=== PATIENT | male | born 1940 | race Caucasian/White ===

== ENCOUNTER 2016-11-30 08:40 | Emergency (ER) | payer MEDICARE ==
[2016-11-30 08:53] VITALS: BP 147/91; O2SAT 95
--- NOTE | 2016-11-30 09:11 | ERPHSYRPT ---
- History of Present Illness Time Seen by Provider: 11/30/16 08:52 Source: patient Exam Limitations: no limitations Patient Subjective Stated Complaint: PT COMES IN STATES "MY HEAD JUST FEELS CLOGGED LIKE MY SINUS'S" STATES THAT HE HAS SEEN HIS FAMILY MD X 5 TIMES FOR SAME THING STATES THAT THIS PROBLEMS HAS BEEN GOING ON X 2 MONTHS. FAMILY STATES HE HAS BEEN ON NOSE SPRAY ,. STEROIDS,ANTIBIOTICS BUT NOTHING IS HELPING PT DENIES A COUGH,NASUEA VOMITING. Triage Nursing Assessment: PT ALERT WARM AND DRY RESP EASY NON LABORED PT AMBULATED TO ROOM WITHOUT DIFFICULTY. PT HARD OF HEARING. Physician History: Pt. with chronic headache for past 2 months, usually frontal headache, dull, intermittent, sinus pressure, tinnitus and generalized weakness. Pt. have been seen by primary provider X 5 with minimal relief. Denies any blurred vision, dizziness, AMS, speech difficulty or ataxia. Denies any recent illnesses, fever , chills, cough, chest pain, palpitations or shortness of breath. Lives with [id number]. Pt. with decrease hearing and doesn't want to see "hearing doctor" due to not having funds. Timing/Duration: intermittent, other (2 months) Quality: dullness Head Pain Location: frontal Severity of Pain-Max: moderate Severity of Pain-Current: moderate Recent Head Trauma: no recent headache/trauma Modifying Factors: Improves With: other (Atbcs/decongestants with minimal relief ) Associated Symptoms: facial pain, nasal congestion, No confusion, No dizziness, No fever/chills, No nausea/vomiting, No nasal drainage, No vision changes, No visual disturbance Allergies/Adverse Reactions: Penicillins Allergy (Intermediate, Verified 10/24/14 08:38) Rash Sulfa (Sulfonamide Antibiotics) Allergy (Intermediate, Verified 10/24/14 08:38) Rash Home Medications: Albuterol Sulfate [Proair Hfa] 0 gm IH BID 10/23/14 [History] Alprazolam 2 mg PO TIDPRN PRN 10/23/14 [History] Hydrocodone Bit/Acetaminophen [Hydrocodon-Acetaminophn 10-325] 1 each PO Q6HPRN PRN 10/23/14 [History] Hx Tetanus, Diphtheria Vaccination/Date Given: Yes Hx Influenza Vaccination/Date Given: Yes Hx Pneumococcal Vaccination/Date Given: No Immunizations Up to Date: Yes - Review of Systems Constitutional: Weakness (generalize, non focal), No Fever, No Chills Eyes: No Symptoms Ears, Nose, & Throat: Hearing Changes, Tinnitus, Nose Congestion, No Throat Pain , No Throat Swelling Respiratory: Cough (dry), No Dyspnea Cardiac: No Symptoms, No Chest Pain, No Edema, No Syncope Abdominal/Gastrointestinal: No Abdominal Pain, No Nausea, No Vomiting, No Diarrhea Genitourinary Symptoms: No Dysuria Musculoskeletal: No Symptoms, No Back Pain, No Neck Pain Skin: No Rash Neurological: No Dizziness, No Focal Weakness, No Sensory Changes Psychological: No Symptoms Endocrine: No Symptoms All Other Systems: Reviewed and Negative - Past Medical History Pertinent Past Medical History: Yes Neurological History: No Pertinent History ENT History: Cataracts Cardiac History: Hypertension Respiratory History: COPD Endocrine Medical History: No Pertinent History Musculoskeletal History: Osteoarthritis GI Medical History: GERD History: No Pertinent History Psycho-Social History: Anxiety, Depression Male Reproductive Disorders: No Pertinent History - Past Surgical History Past Surgical History: Yes Neuro Surgical History: No Pertinent History Cardiac: No Pertinent History Respiratory: No Pertinent History Gastrointestinal: Hernia Repair Genitourinary: No Pertinent History Musculoskeletal: No Pertinent History Male Surgical History: No Pertinent History Other Surgical History: cataract surgery - Social History Smoking Status: Current every day smoker How long have you smoked: 60 YEARS Exposure to second hand smoke: Yes Drug Use: none Patient Lives Alone: No - Nursing Vital Signs Nursing Vital Signs: Initial Vital Signs Temperature 97.8 F Temperature Source Oral Pulse Rate 84 Respiratory Rate 18 Blood Pressure [Right Arm] 147/91 - Physical Exam General Appearance: no apparent distress Eye Exam: PERRL/EOMI, eyes nml inspection Ears, Nose, Throat Exam: normal ENT inspection, moist mucous membranes, other ( mild tenderness frontal sinus to palpation) Neck Exam: normal inspection, supple, full range of motion, No meningismus Respiratory Exam: normal breath sounds, lungs clear Cardiovascular Exam: regular rate/rhythm, normal heart sounds Gastrointestinal/Abdominal Exam: soft, No tenderness, No distention Back Exam: normal inspection, normal range of motion Extremity Exam: normal inspection, normal range of motion Mental Status Exam: alert, 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, 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 Exam: normal hearing, PERRL, No abnormal speech, No facial droop Coordination/Gait Exam: normal finger to nose, normal cerebellar function Motor/Sensory Exam: no motor deficit, no sensory deficit DTR Exam: knee (R): 2+, knee (L): 2+ Skin Exam: normal color, warm, dry, No rash Lymphatic Exam: No adenopathy SpO2 Interpretation: normal SpO2: 95 Oxygen Delivery: Room Air - Course Nursing assessment & vital signs reviewed: Yes - CT Exams Head CT Interpretation: Negative, Tele-radiologist Report Ordered Tests: Active Orders 24 hr Category Date Time Status HEAD WITHOUT CONTRAST [CT] Stat Exams 11/30/16 09:22 Taken Medication Summary Discontinued Medications Generic Name Dose Route Start Last Admin Trade Name Inderjit PRN Reason Stop Dose Admin Acetaminophen 1,000 mg 11/30/16 09:22 11/30/16 09:25 Tylenol Extra Strength 500 Mg PO 11/30/16 09:23 1,000 mg STAT STA Administration Acetaminophen Confirm 11/30/16 09:25 Tylenol Extra Strength 500 Mg Administered 11/30/16 09:26 Dose 1,000 mg .ROUTE .STMesitis-MED ONE - Progress Progress: improved Air Movement: good Progress Note: 11/30/16 09:52 Pt. given Tylenol with some improvement of symptoms. Blood Culture(s) Obtained: No Antibiotics given: No Counseled pt/family regarding: diagnosis, rad results - Departure Time of Disposition: 10:09 Departure Disposition: Home Clinical Impression: Headache Condition: Stable Critical Care Time: No Referrals: PEGGY MACIAS [Primary Care Provider] - Instructions: Headache Additional Instructions: Return for worse headaches, numbness, blurred vision, difficulty speaking, altered mental status or any problems.
[2016-11-30] MEDS ORDERED: TYLENOL EXTRA STRENGTH 500 MG PO STA (09:22)
[2016-11-30] MEDS ORDERED: TYLENOL EXTRA STRENGTH 500 MG ONE (09:25)
[2016-11-30 10:15] VITALS: PULSE 80
--- NOTE | 2016-11-30 20:52 | XRAY ---
Indication: Headache. Multiple contiguous axial images obtained through the head without contrast. Comparison: None There is age-appropriate global atrophy and mild periventricular degenerative microvascular ischemia bilaterally. No acute intracranial hemorrhage, abnormal extra-axial fluid collection, or mass effect. Fourth ventricle is midline without hydrocephalus. Bony calvarium intact. Visualized paranasal sinuses clear. Minimal opacification of the inferior right mastoid air cells. Impression: Nonacute senile brain. Minimal right mastoid air cell opacification presumed inflammatory. CTDI 70.38
== END 2016-11-30 10:15 | disposition home or self-care (01) ==
LOC: ED 08:40
DX: R51 Headache (principal)
CPT/HCPCS: 99283; 70450; A9270

== ENCOUNTER 2018-11-18 10:37 | Emergency (ER) | payer MEDICARE ==
[2018-11-18] MEDS ORDERED: ROCEPHIN 1 Gm-D5w 50 ml Bag** 1 G/50 ML IVPB IV STA (10:55)
[2018-11-18] MEDS ORDERED: DUONEB 0.5-3 MG/3 ml Neb IH ONE ×2 (10:55→11:04)
[2018-11-18] MEDS ORDERED: Zithromax 500 MG/ 250 ML NaCl Premix 500 MG/250 ML IVPB IV STA (10:55)
[2018-11-18] MEDS ORDERED: solu-MEDROL 125 MG IV ONE (10:55)
--- NOTE | 2018-11-18 11:18 | XRAY ---
Indication: Short of breath. Comparison: June 18, 2018. PA/lateral chest again demonstrates COPD and bilateral scattered fibrosis/scarring. New left suprahilar masslike opacity warrants additional imaging. Heart and mediastinal structures within normal limits. Bony thorax intact again with degenerative changes and minimal scoliosis. Impression: 1. New left suprahilar masslike opacity. Recommend CT chest with contrast. 2. Stable COPD and scattered fibrosis/scarring.
[2018-11-18] MEDS ORDERED: solu-MEDROL 125 MG ONE (11:30)
[2018-11-18] MEDS ORDERED: ROCEPHIN 1 Gm-D5w 50 ml Bag** 1 G/50 ML IVPB IV ONE (11:30)
[2018-11-18] MEDS ORDERED: Zithromax 500 MG/ 250 ML NaCl Premix 500 MG/250 ML IVPB IV ONE (11:30)
[2018-11-18 11:31] LABS: Hematocrit 42.3 % (42-50); Hemoglobin 13.5 gm/dl (12.5-18.0); Mean Cell Volume 87.2 fl (78-100); Mean Corpuscular Hemoglobin 27.8 pg (26-32); Mean Corpuscular Hgb Concent. 31.9 g/dl (32-36); Mean Platelet Volume 11.4 fl (6-9.5); Platelet Count 233 K/mm3 (150-450); Red Blood Count 4.85 M/mm3 (4.1-5.6); Red Cell Distribution Width 14.6 % (11.5-14.0); White Blood Count 9.7 K/mm3 (4.0-10.5)
[2018-11-18 11:45] LABS: ALBUMIN 4.1 g/dL (3.5-5.0); ALKALINE PHOSPHATASE 127 U/L (38-126); ANION GAP 13.6 MEQ/L (5-15); BLOOD UREA NITROGEN 16 mg/dL (9-20); CHLORIDE 100 mmol/L (98-107); Calcium 9.3 mg/dL (8.4-10.2); Carbon Dioxide 31 mmol/L (22-30); Creatinine 1 1.06 mg/dL (0.66-1.25); Glucose 90 mg/dL (74-106); Potassium 3.4 mmol/L (3.5-5.1); SGOT/AST 25 U/L (17-59); SGPT/ALT 13 U/L (0-50); SODIUM 140 mmol/L (137-145); Total Protein 8.6 g/dL (6.3-8.2)
[2018-11-18 11:46] LABS: Lymphocytes 35 % (24-44); Monocyte 2 % (0.0-12.0); Neutrophils 63 % (36.-66.); Platelet Estimate NORMAL (NORMAL); Total Cells Counted 100
[2018-11-18 12:07] LABS: INFLUENZA A POSITIVE (NEGATIVE); INFLUENZA B NEGATIVE (NEGATIVE); RESPIRATORY SYNCTIAL VIRUS NEGATIVE (Negative)
[2018-11-18] MEDS ORDERED: Tamiflu 75MG Capsule PO ONE ×2 (12:08→12:59)
[2018-11-18 12:37] LABS: Appearance CLEAR (CLEAR); Bilirubin NEGATIVE (NEGATIVE); Blood NEGATIVE Ery/ul (0-5); Glucose NEGATIVE (NEGATIVE); Ketones NEGATIVE (NEGATIVE); Leukocyte Esterase NEGATIVE (NEGATIVE); Mucus SLIGHT /HPF (NEGATIVE); Nitrite NEGATIVE (NEGATIVE); Protein,Urine Dip NEGATIVE (Negative); Specific Gravity 1.009 (1.005-1.025); Urobilinogen NEGATIVE mg/dL (0-1)
[2018-11-18 12:42] LABS: Fatty Casts,Urine N /LPF (NEGATIVE)
--- NOTE | 2018-11-18 13:27 | XRAY ---
Indication: Short of breath. Left lung masslike opacity on same-day chest radiograph. Multiple contiguous axial images obtained through the chest using 80 cc Isovue 370 contrast. Comparison: None Lungs demonstrate extensive bilateral pulmonary emphysema, scattered right lung calcified granulomas, and scattered fibrosis/scarring greatest in the right upper lobe. There is a large left suprahilar soft tissue mass measuring at least 10.0 x 8.7 x 10.6 cm in greatest AP, transverse, and CC projections respectively. Soft tissue mass encases the left main pulmonary artery with minimal effacement. Also mass effect with post-obstructed atelectasis of the left upper lobe. No effusion. Heart is not enlarged but small inferior pericardial effusion/thickening. Aorta is mildly arteriosclerotic without aneurysm/dissection. A few small mediastinal lymph nodes, largest pretracheal measuring 2.1 x 2.2 cm. Also a few tiny subcarinal and bilateral hilar calcified nodes. There are incompletely visualized bilateral supraclavicular soft tissue masses, largest on the left measuring at least 2.6 x 4 cm Bony thorax demonstrates mild osteopenia, mild degenerative changes throughout the spine, and minimal double curvature scoliosis. Limited upper abdomen demonstrates mild diffuse fatty liver and 1.4 cm gallstone. Impression: 1. Large left suprahilar soft tissue mass as detailed worrisome for malignancy. There is mass effect with slight effacement of the left main pulmonary artery and post-obstructed left upper lobe atelectasis. Mass is amenable to CT-guided biopsy if needed. Incidental prominent mediastinal node and incompletely visualized bilateral supraclavicular adenopathy may be related. 2. Extensive pulmonary emphysema with scattered fibrosis/scarring and evidence for old granulomatous disease. 3. Pericardial effusion/thickening. Echocardiogram may yield further information. 4. Incidental fatty liver and gallstone. CT DI 7.50
--- NOTE | 2018-11-18 14:18 | ERPHSYRPT ---
- History of Present Illness Source: patient Exam Limitations: no limitations Patient Subjective Stated Complaint: was sent from clinic for increase sob. states started about a week ago, fever a week ago but none now. coughing up yellow sputum. Triage Nursing Assessment: pt alert, resp easy, skin w/d/p. congested counding cough, no edema noted Physician History: Pt presented to acute care clinic secondary to SOB. He was refereed to the ED as he was very hypoxic. Pt states, he is not using O2 at home. Pt denies F/C/ S. No chest pain or palpitations. No N/V/D or abdominal pain. Timing/Duration: day(s) Activities at Onset: none Severity of Dyspnea-Max: moderate Severity of Dyspnea-Current: mild Possible Cause: occasional episodes Modifying Factors: Improves With: exertion Associated Symptoms: constant, weakness Allergies/Adverse Reactions: Penicillins Allergy (Intermediate, Verified 11/18/18 10:48) Rash Sulfa (Sulfonamide Antibiotics) Allergy (Intermediate, Verified 11/18/18 10:48) Rash Home Medications: Albuterol Sulfate [Proair Hfa] 0 gm IH BID 10/23/14 [History] Alprazolam 2 mg PO TIDPRN PRN 10/23/14 [History] Hydrocodone Bit/Acetaminophen [Hydrocodon-Acetaminophn 10-325] 1 each PO Q6HPRN PRN 10/23/14 [History] Ranitidine HCl [Zantac] 150 mg BID 11/18/18 [History] Hx Tetanus, Diphtheria Vaccination/Date Given: Yes Hx Influenza Vaccination/Date Given: Yes Hx Pneumococcal Vaccination/Date Given: Yes Immunizations Up to Date: Yes - Review of Systems Constitutional: Fatigue Eyes: No Symptoms Ears, Nose, & Throat: No Symptoms Respiratory: Cough, Dyspnea, Dyspnea on Exertion (AVENDANO) Cardiac: No Chest Pain, No Edema, No Syncope Abdominal/Gastrointestinal: No Abdominal Pain, No Nausea, No Vomiting, No Diarrhea Genitourinary Symptoms: No Dysuria Musculoskeletal: No Back Pain, No Neck Pain Neurological: No Dizziness, No Focal Weakness, No Sensory Changes - Past Medical History Pertinent Past Medical History: Yes Neurological History: No Pertinent History ENT History: Cataracts Cardiac History: Hypertension Respiratory History: COPD Endocrine Medical History: No Pertinent History Musculoskeletal History: Osteoarthritis GI Medical History: GERD History: No Pertinent History Psycho-Social History: Anxiety, Depression Male Reproductive Disorders: No Pertinent History - Past Surgical History Past Surgical History: Yes Neuro Surgical History: No Pertinent History Cardiac: No Pertinent History Respiratory: No Pertinent History Gastrointestinal: Hernia Repair Genitourinary: No Pertinent History Musculoskeletal: No Pertinent History Male Surgical History: No Pertinent History Other Surgical History: cataract surgery - Social History Smoking Status: Former smoker How long have you smoked: 60 YEARS Exposure to second hand smoke: Yes Drug Use: none Patient Lives Alone: No - Nursing Vital Signs Nursing Vital Signs: Initial Vital Signs Temperature 98.0 F 11/18/18 10:41 Pulse Rate 105 H 11/18/18 10:41 Respiratory Rate 18 11/18/18 10:41 Blood Pressure 156/103 11/18/18 10:41 O2 Sat by Pulse Oximetry 85 L 11/18/18 10:41 Pain Scale Pain Intensity 0 - Physical Exam General Appearance: moderate distress (Secondary to respiratory distress and hypoxia.) Eye Exam: PERRL/EOMI Ears, Nose, Throat Exam: normal ENT inspection Neck Exam: normal inspection, supple Respiratory Exam: respiratory distress, diminished breath sounds, accessory muscle use, wheezing Cardiovascular/Chest Exam: normal heart sounds, regular rate/rhythm Abdominal/Gastrointestinal Exam: soft, No tenderness, No distention, No mass Extremity Exam: non-tender, normal range of motion, normal inspection, no calf tenderness, no pedal edema Neurologic Exam: alert, 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, cooperative, cable 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 Worrisome for malignancy. Pulmonary emphysema. pericardial effusion/thickening.) Ordered Tests: Active Orders 24 hr Category Date Time Status EKG-ER Only STAT Care 11/18/18 10:55 Active IV Insertion STAT Care 11/18/18 11:22 Active Oxygen-ED Only Nasal Cannula 4 lpm Care 11/18/18 10:55 Active CHEST 2 VIEWS (PA AND LAT) Stat Exams 11/18/18 10:56 Completed CHEST WITH CONTRAST [CT] Stat Exams 11/18/18 12:02 Completed CBC W DIFF Stat Lab 11/18/18 11:20 Completed CMP Stat Lab 11/18/18 11:20 Completed Manual Differential NC Stat Lab 11/18/18 11:20 Completed TROPONIN Q3H Lab 11/18/18 11:20 Completed TROPONIN Q3H Lab 11/18/18 14:00 Ordered TROPONIN Q3H Lab 11/18/18 17:00 Ordered TROPONIN Q3H Lab 11/18/18 20:00 Ordered TROPONIN Q3H Lab 11/18/18 23:00 Ordered UA W/RFX UR CULTURE Stat Lab 11/18/18 Completed Peak Expiratory Flow Rate ONCE RT 11/18/18 11:15 Active Respiratory Nebulizer STAT RT 11/18/18 10:57 Completed Respiratory Therapy Assessment DAILY RT 11/18/18 11:15 Active Medication Summary Discontinued Medications Generic Name Dose Route Start Last Admin Trade Name Freq PRN Reason Stop Dose Admin Albuterol/Ipratropium 3 ml 11/18/18 10:55 11/18/18 11:12 Duoneb 0.5-3 Mg/3 Ml Neb IH 11/18/18 10:56 3 ml STAT ONE Administration Albuterol/Ipratropium Confirm 11/18/18 11:04 Duoneb 0.5-3 Mg/3 Ml Neb Administered 11/18/18 11:05 Dose 3 ml IH .STK-MED ONE Ceftriaxone Sodium/Dextrose 1 g in 50 mls @ 100 mls/hr 11/18/18 10:55 11:47 Rocephin 1 Gm-D5w 50 Ml Bag IV 11/18/18 11:24 100 ml/hr STAT STA 100 mls/hr Administration Azithromycin 500 mg in 250 mls @ 250 mls/hr 11/18/18 10:55 11/18/18 12:56 Zithromax 500 Mg/ 250 Ml Nacl Premix IV 11/18/18 11:54 250 ml/hr STAT STA 250 mls/hr Administration Azithromycin Confirm 11/18/18 11:30 Zithromax 500 Mg/ 250 Ml Nacl Premix Administered 11/18/18 11:31 Dose 500 mg in 250 mls @ ud IV .STK-MED ONE Ceftriaxone Sodium/Dextrose Confirm 11/18/18 11:30 Rocephin 1 Gm-D5w 50 Ml Bag Administered 11/18/18 11:31 Dose 1 g in 50 mls @ ud IV .STK-MED ONE Methylprednisolone Sodium Succinate 125 mg 11/18/18 10:55 11/18/18 11:46 Solu-Medrol 125 Mg IV 11/18/18 10:56 125 mg STAT ONE Administration Methylprednisolone Sodium Succinate Confirm 11/18/18 11:30 Solu-Medrol 125 Mg Administered 11/18/18 11:31 Dose 125 mg .ROUTE .STK-MED ONE Oseltamivir Phosphate 75 mg 11/18/18 12:08 11/18/18 13:11 Tamiflu 75mg Capsule PO 11/18/18 12:09 75 mg STAT ONE Administration Oseltamivir Phosphate Confirm 11/18/18 12:59 Tamiflu 75mg Capsule Administered 11/18/18 13:00 Dose 75 mg PO .STK-MED ONE Lab/Rad Data: Laboratory Result Diagrams 11/18/18 11:20 11/18/18 11:20 Laboratory Results 11/18/18 11/18/18 11/18/18 Range/Units Unknown 11:22 11:20 WBC (4.0-10.5) K/mm3 RBC (4.1-5.6) M/mm3 Hgb (12.5-18.0) gm/dl Hct (42-50) % MCV (78-100) fl MCH (26-32) pg MCHC (32-36) g/dl RDW (11.5-14.0) % Plt Count (150-450) K/mm3 MPV (6-9.5) fl Segmented Neutrophils (36.-66.) % Lymphocytes (Manual) (24-44) % Monocytes (Manual) (0.0-12.0) % Platelet Estimate (NORMAL) RBC Morphology Sodium (137-145) mmol/L Potassium (3.5-5.1) mmol/L Chloride (98-107) mmol/L Carbon Dioxide (22-30) mmol/L Anion Gap (5-15) MEQ/L BUN (9-20) mg/dL Creatinine (0.66-1.25) mg/dL Estimated GFR ML/MIN Glucose (74-106) mg/dL Calcium (8.4-10.2) mg/dL Total Bilirubin (0.2-1.3) mg/dL AST (17-59) U/L ALT (0-50) U/L Alkaline Phosphatase (38-126) U/L Troponin I < 0.012 (0.000-0.034) ng/mL Serum Total Protein (6.3-8.2) g/dL Albumin (3.5-5.0) g/dL Urine Color STRAW (YELLOW) Urine Appearance CLEAR (CLEAR) Urine pH 6.0 (5-6) Ur Specific [place] 1.009 (1.005-1.025) Urine Protein NEGATIVE (Negative) Urine Ketones NEGATIVE (NEGATIVE) Urine Blood NEGATIVE (0-5) Chong/ul Urine Nitrite NEGATIVE (NEGATIVE) Urine Bilirubin NEGATIVE (NEGATIVE) Urine Urobilinogen NEGATIVE (0-1) mg/dL Ur Leukocyte Esterase NEGATIVE (NEGATIVE) Urine WBC (Auto) NONE (0-5) /HPF Urine RBC (Auto) NONE (0-2) /HPF U Epithel Cells (Auto) NONE (FEW) /HPF Urine Bacteria (Auto) NONE (NEGATIVE) /HPF Fatty Casts N (NEGATIVE) /LPF Urine Mucus (Auto) SLIGHT (NEGATIVE) /HPF Urine Culture Reflexed NO (NO) Urine Glucose NEGATIVE (NEGATIVE) mg/dL Influenza Type A Ag POSITIVE (NEGATIVE) Influenza Type B Ag NEGATIVE (NEGATIVE) RSV (PCR) NEGATIVE (Negative) 11/18/18 11/18/18 Range/Units 11:20 11:20 WBC 9.7 (4.0-10.5) K/mm3 RBC 4.85 (4.1-5.6) M/mm3 Hgb 13.5 (12.5-18.0) gm/dl Hct 42.3 (42-50) % MCV 87.2 (78-100) fl MCH 27.8 (26-32) pg MCHC 31.9 L (32-36) g/dl RDW 14.6 H (11.5-14.0) % Plt Count 233 (150-450) K/mm3 MPV 11.4 H (6-9.5) fl Segmented Neutrophils 63 (36.-66.) % Lymphocytes (Manual) 35 (24-44) % Monocytes (Manual) 2 (0.0-12.0) % Platelet Estimate NORMAL (NORMAL) RBC Morphology NORMAL Sodium 140 (137-145) mmol/L Potassium 3.4 L (3.5-5.1) mmol/L Chloride 100 (98-107) mmol/L Carbon Dioxide 31 H (22-30) mmol/L Anion Gap 13.6 (5-15) MEQ/L BUN 16 (9-20) mg/dL Creatinine 1.06 (0.66-1.25) mg/dL Estimated GFR > 60.0 ML/MIN Glucose 90 (74-106) mg/dL Calcium 9.3 (8.4-10.2) mg/dL Total Bilirubin 0.80 (0.2-1.3) mg/dL AST 25 (17-59) U/L ALT 13 (0-50) U/L Alkaline Phosphatase 127 H (38-126) U/L Troponin I (0.000-0.034) ng/mL Serum Total Protein 8.6 H (6.3-8.2) g/dL Albumin 4.1 (3.5-5.0) g/dL Urine Color (YELLOW) Urine Appearance (CLEAR) Urine pH (5-6) Ur Specific [place] (1.005-1.025) Urine Protein (Negative) Urine Ketones (NEGATIVE) Urine Blood (0-5) Chong/ul Urine Nitrite (NEGATIVE) Urine Bilirubin (NEGATIVE) Urine Urobilinogen (0-1) mg/dL Ur Leukocyte Esterase (NEGATIVE) Urine WBC (Auto) (0-5) /HPF Urine RBC (Auto) (0-2) /HPF U Epithel Cells (Auto) (FEW) /HPF Urine Bacteria (Auto) (NEGATIVE) /HPF Fatty Casts (NEGATIVE) /LPF Urine Mucus (Auto) (NEGATIVE) /HPF Urine Culture Reflexed (NO) Urine Glucose (NEGATIVE) mg/dL Influenza Type A Ag (NEGATIVE) Influenza Type B Ag (NEGATIVE) RSV (PCR) (Negative) - Progress Progress: improved Air Movement: poor Progress Note: 11/18/18 14:23 Pt was treated with Rocephin, Azithromycin and Tamiflu. He was given neb treatment and Solu Medrol 125mg IV. As CT showed large mass, and emphysema, I contacted regional ER and Dr Osborn accepted pt for transfer. - Departure Time of Disposition: 14:24 Departure Disposition: Transfer ([facility]. Dr Osborn is accepting.) Clinical Impression: Mass of left lung Condition: Stable Critical Care Time: No Referrals: PEGGY MACIAS [Primary Care Provider] -
[2018-11-18 15:14] VITALS: BP 133/80; PULSE 82; O2SAT 94
== END 2018-11-18 15:05 | disposition left against medical advice (07) ==
LOC: ED 10:37
DX: R91.8 Other nonspecific abnormal finding of lung field (principal); R09.02 Hypoxemia; I10 Essential (primary) hypertension; J44.9 Chronic obstructive pulmonary disease, unspecified; K21.9 Gastro-esophageal reflux disease without esophagitis; F41.8 Other specified anxiety disorders; M19.90 Unspecified osteoarthritis, unspecified site; Z99.81 Dependence on supplemental oxygen
CPT/HCPCS: 36000; 36415; 71046; 71260; 80053; 81001; 84484; 85025; 87631; 93005; 94150; 94640; 96365; 96374; 99284; J0456; J0696; J2930; A9270-GY